=== PATIENT | female | born 1965 | race Caucasian/White ===

== ENCOUNTER 2017-06-25 15:00 | Outpatient (RCR) | payer OTHER, SELFPAY ==
--- NOTE | 2017-05-14 08:45 | HP.OTEVAL ---
Patient's Visit Information RENÉ TOBIAS is a 52 year old F, referred to Occupational Therapy by Ezio Eldridge,, with a diagnosis of Laceration of extensor muscle, extensor tendon right MF right IF. 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 on pt will be 7 weeks s/p. 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 on Apr.09- pt reports not much pain more discomfort from use of orthosis. Referral for OTR/L, CHT eval and develop plan of care and implement plan- to inculde desensitization, Modalities PRN, AROM,AAROM, PROM to statr after 3 weeks, and scar mtg. special instructions to fabricate splint if needed , and begin strengthening 6 weeks postop. - Pain right hand 2 - ROM ROM Comments: Right/left. IF MCP 0/25 left 0/88. MF MCP 0/25 left 0/90. RF MCP 0/25 left 0/85. LF MCP 0/30 left /85 - Strength Marker Assembler: right NT left 70# Lateral Pinch: Right NT left 12# Tripod Pinch: Right NT left 10# - Edema PIP: right 6.5 left 6.1 - Goals Goal:100% adherence to protocol: Yes Goal:Daily scar massage when approriate: Yes Goal:ROM equal to unaffected hand: Yes Goal:Marker Assembler/Pinch strength at least 75% of unaffected hand: Yes Goal:No pain with affected hand use: Yes Goal:PIP Circumferences equal to unaffected hand: Yes Goal:Full use of affected hand in daily activities including: Yes Goal:Decrease scar hypersensitivity: Yes - Rehabilitation General Assessment: Pt is S/P rigth hand middle and right index finger extensor tendon repair. pt demo with decrease functional ROM and limited use of right hand for bilateral daily hand tasks. Pt would benefit from skilled OTR/L, CHT services to rehab pts to PLOF. Rehabilitation Potential: Excellent - Anticipated Interventions Anticipated Interventions: A/AAROM/PROM, Strengthening, Scar Care, Triggerpoint Release, Modalities, Orthoses, Fine Motor Coord/Dirk - Visit Plan Frequency: 2-3x /Week Duration: 4 Weeks General Plan: will follow extensor tendon protocol- as pt 6 weeks 5 days S/P will D/C splint in two days monitor pt for extensor lag and initate ROM ex. strengthening once pt has reached a functional grasp ability. and cont with dr. marc and extensor tendon protocol TEXT: Thank you for the opportunity to evaluate your patient. For Medicare and Medicare HMO plans, please review the plan of care and approve it. It will need to be FAXED BACK to us at [phone] for Medicare purposes. Please let me know if there are questions or concerns regarding this plan of care. Physician Signature: Date:
--- NOTE | 2017-05-26 15:41 | HP.OTREVAL ---
Ezio Eldridge, It has been my pleasure to treat RENÉ TOBIAS over the last 5 visits for Laceration of extensor muscle, extensor tendon right MF right IF. Please see the progress note below for an update on the occupational therapy plan of care! Subjective: pt attends session -states her hand was feeling stiff this am- pt states she is feeling like she is 65% better at this time- most difficulty is keeping her composite fist for daily occupations and fighting the swelling- Objective/Function: right. MCP. IF 60. MF 55. RF 40. LF 45. PIP. IF 70. MF 80. RF 85. LF 80. DIP. IF 45. MF 45. RF 45. LF 60. right machine adjuster leader case trim strength 20#. due to the delay in initiation of skilled OT services pt has a delay in her recovery- she did not get OT until she was 7 weeks s/p and demo scar adhesions limiting her functional ROM following a ext tendon repair. pt has made good gains but cont to suffer from stiffness and limited composite fist. this limitation decreases pts ind. with all BADSL and IADLS. Plan Frequency: 2-3x /Week Duration: 4 Weeks Plan: cont to challenge pts functional ability to form a composite fist and PRE to return pt to PLOF Anticipated Interventions Anticipated Interventions: A/AAROM/PROM, Strengthening, Scar Care, Triggerpoint Release, Modalities, Orthoses, Fine Motor Coord/Dirk Please do not hesitate to contact me at [phone] by phone or if you have questions or concerns regarding this new plan of care! Sincerely, Germaine Paul, OTR/L, CHT
--- NOTE | 2017-06-25 13:21 | HP.OTREVAL ---
Ezio Eldridge, It has been my pleasure to treat RENÉ TOBIAS over the last 14 visits for Laceration of extensor muscle, extensor tendon right MF right IF. Please see the progress note below for an update on the occupational therapy plan of care! Subjective: pt states she is doing well- states the UB strengthening is feeling good- no problems with he hand at this time- pt reports stiffness in the am but demo understanding that will take some time to go away Objective/Function: right special education assistant strength 40# this is a increase from 20#. left special education assistant strength 75#. right lateral pinch- 10#. right tripod pinch 8#. Right MCP. IF 0/75. MF -. RF 0/70. LF 0/60. Right PIP. IF -. MF -. RF -. LF. Right DIP. IF 0/50. MF 0/50. RF 0/65. LF 0/60 Plan Frequency: 2-3x /Week Duration: 4 Weeks Plan: cont tx to increase functional strength Anticipated Interventions Anticipated Interventions: A/AAROM/PROM, Strengthening, Scar Care, Triggerpoint Release, Modalities, Orthoses, Fine Motor Coord/Dirk Please do not hesitate to contact me at [phone] by phone or if you have questions or concerns regarding this new plan of care! Sincerely, Germaine Paul OTR/L, CHT
--- NOTE | 2017-06-25 15:23 | HP.OTREVAL ---
Ezio Eldridge, It has been my pleasure to treat RENÉ TOBIAS over the last 15 visits for Laceration of extensor muscle, extensor tendon right MF right IF. Please see the progress note below for an update on the occupational therapy plan of care! Subjective: pt states she is doing well- states the UB strengthening is feeling good- no problems with he hand at this time- pt reports stiffness in the am but demo understanding that will take some time to go away- pt states she is cont to avoid lifting heavy things at work but all other tasks she is doing ind. Objective/Function: right earth science faculty member strength 50# this is a increase from 20#. left earth science faculty member strength 75#. right lateral pinch- 10#. right tripod pinch 8#. Right MCP. IF 0/75. MF 0/75. RF 0/70. LF 0/85. Right PIP. IF 0/85. MF 0/90. RF 0/100. LF 0/80. Right DIP. IF 0/53. MF 0/55. RF 0/54. LF 0/63 Plan Frequency: 2-3x /Week Duration: 4 Weeks Plan: pt to see on 06-26-17 and will determin POC Anticipated Interventions Anticipated Interventions: A/AAROM/PROM, Strengthening, Scar Care, Triggerpoint Release, Modalities, Orthoses, Fine Motor Coord/Dirk Please do not hesitate to contact me at [phone] by phone or if you have questions or concerns regarding this new plan of care! Sincerely, Germaine Paul, OTR/L, CHT
--- NOTE | 2017-07-10 15:53 | HP.OTDCSUM_ITS ---
HP - OT D/C Summary It has been my pleasure to treat RENÉ TOBIAS under orders from Ezio Eldridge, for the diagnosis of Laceration of extensor muscle, extensor tendon right MF right IF for a total of 15 visit(s). Please see the following information for a summary of their discharge status. - Overall Improvement % Improvement: 65 - Objective Objective/Function: right hourly sales staff strength 50# this is a increase from 20#. left hourly sales staff strength 75#. right lateral pinch- 10#. right tripod pinch 8#. Right MCP. IF 0/75. MF 0/75. RF 0/70. LF 0/85. Right PIP. IF 0/85. MF 0/90. RF 0/100. LF 0/80. Right DIP. IF 0/53. MF 0/55. RF 0/54. LF 0/63 - Goals Patient Goals: Regain Mobility, Regain Strength, Improve Fine Motor Skills, Use Hand/Wrist/Arm Normally Again, Increase ROM, Be More Independent in ADLS Goal:100% adherence to protocol: Yes Goal Progress: Goal Met Goal:Daily scar massage when approriate: Yes Goal Progress: Goal Met Goal:ROM equal to unaffected hand: Yes Goal Progress: Progressing Goal:Shank Boner/Pinch strength at least 75% of unaffected hand: Yes Goal Progress: Progressing Goal:No pain with affected hand use: Yes Goal Progress: Goal Met Goal:PIP Circumferences equal to unaffected hand: Yes Goal:Full use of affected hand in daily activities including: Yes Goal Progress: Goal Met Goal:Decrease scar hypersensitivity: Yes Goal Progress: Goal Met - Plan Plan: pt to see on 06-26-17 and will determin POC - D/C Information If there are questions or concerns regarding this patient's occupational therapy , please fell free to call me at [phone]. Thank you for the referral of this patient. Sincerely, Germaine Paul, OTR/L, CHT
== END 2017-06-25 19:00 | disposition home or self-care (01) ==
LOC: OT 15:00
PROVIDERS: Family Provider Family Medicine; PCP Family Medicine; Visit Provider Orthopaedic Surgery Hand Surgery
DX: S66.322D Laceration of extensor muscle, fascia and tendon of right middle finger at wrist and hand level, subsequent encounter (principal); S66.320D Laceration of extensor muscle, fascia and tendon of right index finger at wrist and hand level, subsequent encounter
CPT/HCPCS: 97035; 97110; 97140; 97166; 97530